=== PATIENT | female | born 1990 | race Caucasian/White ===

== ENCOUNTER 2021-10-29 05:14 | Inpatient (IN) | payer OTHER ==
[2021-10-29] MEDS ORDERED: Diphenoxylate HCl/Atropine Tablet PO PRN ×2 (05:30)
[2021-10-29] MEDS ORDERED: NS w/ Oxytocin 30 units 500 ML IV SCH ×2 (05:30)
[2021-10-29] MEDS ORDERED: Lidocaine 1% (PF) 30 ML VIAL SC PRN (05:30)
[2021-10-29] MEDS ORDERED: Acetaminophen 500 MG TAB PO PRN (05:30)
[2021-10-29] MEDS ORDERED: Butorphanol Tartrate 1 MG/ML VIAL SLOW IVP PRN (05:30)
[2021-10-29] MEDS ORDERED: NS w/ Oxytocin 30 units 500 ML IVPB SCH (05:30)
[2021-10-29] MEDS ORDERED: Ibuprofen 800 MG TAB PO PRN (05:30)
[2021-10-29] MEDS ORDERED: HYDROcodone/Acetaminophen 5/325 mg Tablet PO PRN ×4 (05:30→18:51)
[2021-10-29] MEDS ORDERED: Misoprostol 200 MCG TAB PR PRN (05:30)
[2021-10-29] MEDS ORDERED: Promethazine HCl 25 MG/ML VIAL IM PRN ×2 (05:30→10:16)
[2021-10-29] MEDS ORDERED: Ondansetron PF 4 MG/2 ML Vial IVP PRN ×3 (05:30→18:51)
[2021-10-29] MEDS ORDERED: Docusate 100 MG CAP PO PRN (05:30)
[2021-10-29] MEDS ORDERED: hydrALAZINE 20 MG/ML VIAL SLOW IVP PRN ×2 (05:30→18:51)
[2021-10-29 05:49] VITALS: BMI 35.6
[2021-10-29 06:01] LABS: Hemoglobin 11.2 g/dL (12.0-15.5); Mean Corpuscular HGB CONC 33.9 g/dL (32.0-36.0); Mean Corpuscular Hemoglobin 31.1 pg (27.0-33.0); Mean Corpuscular Volume 91.7 fl (81.6-98.3); Mean Platelet Volume 10.9 fl (7.4-10.4); Platelet Count 220 10x3/uL (150-450); RBC Distribution Width 12.9 % (11.5-14.5); White Blood Cell (WBC) Count 10.3 10x3/uL (3.5-10.5)
[2021-10-29 06:43] LABS: HIV (1/2) Antibody/Antigen Non-Reactive (NonReactive); HIV 1/2 INDEX 0.12 S/CO (<1.00); Hep B Surf Ag Non-Reactive S/CO (NonReactive)
[2021-10-29 06:44] LABS: Syphilis Antibody Nonreactive (Nonreactive); Syphilis Antibody Index 0.06 S/CO (<1.00 Non-Reactive)
[2021-10-29 06:45] LABS: HBSAg Index 0.23 S/CO (0-0.99)
[2021-10-29] MEDS ORDERED: Bupivacaine 0.25% HCL 30 ML VIAL ONE (08:00)
[2021-10-29 08:43] LABS: SARS-CoV-2 NAA Rapid Test Not Detected (NotDetected)
[2021-10-29] MEDS: Lactated Ringer's 1,000 ML IV SCH ×3 (09:24→22:58)
[2021-10-29] MEDS ORDERED: Misoprostol 200 MCG TAB ONE (09:33)
[2021-10-29] MEDS ORDERED: Fentanyl 2 mcg/Bup 0.1% Cadd 100 ML ONE (09:33)
[2021-10-29] MEDS ORDERED: ePHEDrine Sulfate 50 MG/10 ML VIAL SLOW IVP PRN (10:16)
[2021-10-29] MEDS ORDERED: Naloxone HCl 0.4 mg/ml Vial IVP PRN ×2 (10:16)
[2021-10-29] MEDS ORDERED: diphenhydrAMINE 50 MG/ML VIAL IVP PRN (10:16)
[2021-10-29] MEDS ORDERED: Hydrocerin (Eucerin) Cream 120 gm Jar TOP PRN (10:16)
[2021-10-29] MEDS ORDERED: Acetaminophen 325 MG TAB PO PRN (10:16)
[2021-10-29] MEDS ORDERED: Lactated Ringer's 500 ML IV PRN (10:16)
[2021-10-29] MEDS ORDERED: Fentanyl 2 mcg/Bupivacaine 0.1% Cassette 100 ML EPIDURAL SCH (10:30)
[2021-10-29] MEDS ORDERED: Communication Order-Pharmacy FS SCH (10:30)
[2021-10-29] MEDS ORDERED: NS w/ Oxytocin 30 units 500 ML ONE (15:50)
[2021-10-29] MEDS ORDERED: Misoprostol 200 MCG TAB VAG PRN (18:51)
[2021-10-29] MEDS ORDERED: Lanolin Ointment 7 GM TUBE TOP PRN (18:51)
[2021-10-29] MEDS ORDERED: Bisacodyl 10 MG SUPP PR PRN (18:51)
[2021-10-29] MEDS ORDERED: Preparation H Ointment 28 GM TUBE PR PRN (18:51)
[2021-10-29] MEDS ORDERED: Benzocaine-Menthol 82.5 ML CAN TOP PRN (18:51)
[2021-10-29] MEDS ORDERED: Zolpidem Tartrate 5 MG TAB PO PRN (18:51)
[2021-10-29] MEDS ORDERED: Milk Of Magnesia 30 ML UDCUP PO PRN (18:51)
[2021-10-29] MEDS ORDERED: diphenhydrAMINE 25 MG CAP PO PRN (18:51)
[2021-10-29] MEDS: Ibuprofen 800 MG TAB PO SCH (20:13)
[2021-10-29] MEDS: Docusate Calcium (SURFAK) 240 MG CAP PO SCH (22:25)
[2021-10-30] MEDS: Ibuprofen 800 MG TAB PO SCH ×3 (05:31→21:52)
[2021-10-30] MEDS: Lactated Ringer's 1,000 ML IV SCH ×2 (05:32→12:32)
[2021-10-30 06:13] LABS: Hemoglobin 10.2 g/dL (12.0-15.5); Mean Corpuscular HGB CONC 32.8 g/dL (32.0-36.0); Mean Corpuscular Hemoglobin 30.8 pg (27.0-33.0); Mean Platelet Volume 11.4 fl (7.4-10.4); Platelet Count 184 10x3/uL (150-450); Red Blood Cell (RBC) Count 3.31 10x6/uL (3.90-5.03); White Blood Cell (WBC) Count 12.2 10x3/uL (3.5-10.5)
[2021-10-30] MEDS ORDERED: Lidocaine 2% PF 5 ML VIAL ONE (08:00)
[2021-10-30] MEDS: Docusate Calcium (SURFAK) 240 MG CAP PO SCH ×2 (08:55→21:52)
[2021-10-30] MEDS: Ferrous Sulfate 325 MG TAB PO SCH ×2 (08:58→17:45)
[2021-10-30] MEDS ORDERED: Prenatal Vitamin 1 TAB PO SCH (09:00)
[2021-10-30] MEDS ORDERED: Boostrix 0.5 ML (Tdap) VIAL IM ONE (18:51)
[2021-10-30 19:49] VITALS: BP 115/67; TEMP 98.9
== END 2021-10-30 22:20 | disposition home or self-care (01) | DRG 807 ==
LOC: CSHLD 05:14 → CSHPP 21:15
PROVIDERS: ADMIT Obstetrics & Gynecology; ATTEND Obstetrics & Gynecology
PROC: 10D07Z6 Extraction of Products of Conception, Vacuum, Via Natural or Artificial Opening (ICD-10-PCS; principal; 2021-10-29)
PROC: 3E033VJ Introduction of Other Hormone into Peripheral Vein, Percutaneous Approach (ICD-10-PCS; 2021-10-29)
PROC: 10907ZC Drainage of Amniotic Fluid, Therapeutic from Products of Conception, Via Natural or Artificial Opening (ICD-10-PCS; 2021-10-29)
DX: O64.0XX0 Obstructed labor due to incomplete rotation of fetal head, not applicable or unspecified (principal); Z37.0 Single live birth; Z3A.39 39 weeks gestation of pregnancy; Z20.822 Contact with and (suspected) exposure to COVID-19
CPT/HCPCS: 36415; 51702; 85027; 86780; 86850; 86900; 86901; 87340; 87389; J2001; J2590; J7120; S0020; U0002